=== PATIENT | male | born 1975 | race Caucasian/White ===

== ENCOUNTER 2017-10-21 15:17 | Emergency (ER) ==
[2017-10-21 15:21] VITALS: BP 128/63; TEMP 97.5; BMI 32.8
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
== END 2017-10-21 15:53 | disposition home or self-care (01) ==
LOC: ED 15:17
DX: S61.011A Laceration without foreign body of right thumb without damage to nail, initial encounter (principal); W45.8XXA Other foreign body or object entering through skin, initial encounter
CPT/HCPCS: 99282

== ENCOUNTER 2017-12-28 22:00 | Emergency (ER) ==
[2017-12-28 22:07] VITALS: BMI 33.7
[2017-12-28] MEDS ORDERED: DILAUDID 2 MG/ML SYRINGE IM STA (22:17)
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
[2017-12-28 23:26] VITALS: BP 163/94; TEMP 98.5
[2017-12-28] MEDS ORDERED: ED AFTER HOURS SUPPLY MED SENT HOME PO ONE (23:27)
[2017-12-28] MEDS ORDERED: NORCO 10-325 ONE ×2 (23:42→23:51)
== END 2017-12-28 23:50 | disposition home or self-care (01) ==
LOC: ED 22:00
DX: K08.89 Other specified disorders of teeth and supporting structures (principal); K02.7 Dental root caries
CPT/HCPCS: 96372; 99283